=== PATIENT | male | born 1985 | race Caucasian/White ===

== ENCOUNTER → 2016-09-04 | Outpatient (CLI) | payer BC ==
[2016-09-04 10:45] LABS: CH 30.2; CHCM 34.6; HCT 48.8 % (39.0-53.0); HDW 3.04; HGB 16.5 gm/dL (13.0-17.5); MCH 29.7 pg (25.0-35.0); MCHC 33.7 g/dL (31.0-37.0); MCV 87.9 fL (80.0-100.0); Mean Platelet Volume 9.2; RBC 5.55 m/uL (4.30-5.90); WBC 5.3 k/uL (3.8-10.6)
[2016-09-04 11:07] LABS: ALT 34 U/L (21-72); AST 32 U/L (17-59); Alkaline Phosphatase 62 U/L (38-126); Anion Gap 15 mmol/L; Blood Urea Nitrogen 14 mg/dL (9-20); Calcium 9.9 mg/dL (8.4-10.2); Carbon Dioxide 27 mmol/L (22-30); Chloride 105 mmol/L (98-107); Cholesterol 190 mg/dL (<200); Glucose 95 mg/dL (74-99); HDL Cholesterol 29 mg/dL (40-60); Non-African American GFR(MDRD) >60 (>60 ml/min/1.73 sqM); Sodium 147 mmol/L (137-145); Total Protein 7.7 g/dL (6.3-8.2); Triglycerides 170 mg/dL (<150)
== END ==
LOC: LABWHC1 10:24
PROVIDERS: ATTEND Internal Medicine Interventional Cardiology
DX: R06.09 Other forms of dyspnea (principal)
CPT/HCPCS: 36415; 80053; 80061; 85027

== ENCOUNTER 2019-05-17 19:58 | Emergency (ER) | payer BC, MEDICAID, OTHER ==
[2019-05-17 20:12] VITALS: RESP 18; TEMP 97.4
[2019-05-17] MEDS ORDERED: SODIUM CHLORIDE 0.9% 1,000 ML IV STA (20:29)
[2019-05-17] MEDS ORDERED: HYDROmorphone 0.5 MG/0.5 ML SYRINGE IVP STA (20:29)
[2019-05-17] MEDS ORDERED: KETOROLAC 30 MG/ML 1 ML VIAL IVP STA (20:29)
[2019-05-17] MEDS ORDERED: ONDANSETRON 4 MG/2 ML VIAL IVP STA (20:29)
--- NOTE | 2019-05-17 20:40 | ED ---
Abdominal Pain HPI - General Chief Complaint: Abdominal Pain Stated Complaint: Abd pain Time Seen by Provider: 05/17/19 20:08 Source: patient Mode of arrival: ambulatory Limitations: no limitations - History of Present Illness Initial Comments: 33-year-old male patient presents to the emergency department today for evaluation of suprapubic pain and mid low back pain. Patient states this started a few hours ago and has been worsening. States he feels like he constantly has to urinate but only voids small amounts. Denies any hematuria. Denies nausea, vomiting, fever, or chills. Denies any history of similar type pain. Denies any flank pain. Denies history of abdominal surgery. States his bowel movements have been normal. Denies hematochezia or melena. Patient denies any recent rash, shortness breath, chest pain, numbness, tingling, dizziness, weakness, headache, visual changes, or any other complaints. - Related Data Previous Rx's Medication Instructions Recorded Ibuprofen [Motrin] 600 mg PO Q8HR PRN #30 tab 05/17/19 Ondansetron [Zofran ODT] 4 mg PO Q8HR PRN #10 tab 05/17/19 Tamsulosin HCl [Flomax] 0.4 mg PO DAILY #7 cap 05/17/19 Allergies Allergy/AdvReac Type Severity Reaction Status Date / Time Sulfa (Sulfonamide Allergy Unknown Verified 05/17/19 20:14 Antibiotics) Childhood Review of Systems ROS Statement: Those systems with pertinent positive or pertinent negative responses have been documented in the HPI. ROS Other: All systems not noted in ROS Statement are negative. Past Medical History Past Medical History: No Reported History History of Any Multi-Drug Resistant Organisms: None Reported Additional Past Surgical History / Comment(s): cleft palate, tympanoplasty Past Psychological History: No Psychological Hx Reported Smoking Status: Never smoker Past Alcohol Use History: None Reported Past Drug Use History: None Reported General Exam Limitations: no limitations General appearance: alert, in no apparent distress, other (This is a well- developed, well-nourished adult male patient in no acute distress. Vital signs upon presentation are temperature 97.4F, pulse 71, respirations 18, blood p ressure 139/85, pulse ox 98% on room air.) Eye exam: Present: normal appearance, PERRL, EOMI. Absent: scleral icterus, conjunctival injection, periorbital swelling ENT exam: Present: normal exam, normal oropharynx, mucous membranes moist Respiratory exam: Present: normal lung sounds bilaterally. Absent: respiratory distress, wheezes, rales, rhonchi, stridor Cardiovascular Exam: Present: regular rate, normal rhythm, normal heart sounds. Absent: systolic murmur, diastolic murmur, rubs, gallop, clicks GI/Abdominal exam: Present: soft, normal bowel sounds. Absent: distended, tenderness, guarding, rebound, rigid Back exam: Absent: CVA tenderness (R), CVA tenderness (L) Neurological exam: Present: alert, oriented X3, CN II-XII intact Psychiatric exam: Present: normal affect, normal mood Skin exam: Present: warm, dry, intact, normal color. Absent: rash Course Vital Signs 05/17/19 05/17/19 20:10 22:49 Temperature 97.4 F L Pulse Rate 71 73 Respiratory 18 18 Rate Blood Pressure 139/85 131/77 O2 Sat by Pulse 98 96 Oximetry Medical Decision Making - Medical Decision Making 33-year-old male patient presents to the emergency department today for evaluation of suprapubic and low back pain. Patient states this started approximately an hour ago. Physical examination did reveal no abdominal tenderness no CVA tenderness. Labs reviewed, elevated creatinine. Urinalysis shows the presence of blood. CT abdomen and pelvis without contrast was obtained and shows evidence for a left 2 mm kidney stone at the U Da. I did discuss findings and results with the patient. We'll treat for kidney stone with pain management, nausea medication, and Flomax. He is instructed to follow-up with his primary care physician for recheck in 1-2 days. He is instructed to follow-up with urology as needed. Return parameters discussed in detail. He verbalizes understanding and agrees with this plan. - Lab Data Result diagrams: 05/17/19 20:43 05/17/19 20:43 Lab Results 05/17/19 05/17/19 05/17/19 Range/Units 20:43 20:43 20:45 WBC 8.5 (3.8-10.6) k/uL RBC 5.78 (4.30-5.90) m/uL Hgb 17.3 (13.0-17.5) gm/dL Hct 50.4 (39.0-53.0) % MCV 87.1 (80.0-100.0) fL MCH 29.8 (25.0-35.0) pg MCHC 34.2 (31.0-37.0) g/dL RDW 13.0 (11.5-15.5) % Plt Count 134 L (150-450) k/uL Neutrophils % 69 % Lymphocytes % 20 % Monocytes % 5 % Eosinophils % 3 % Basophils % 1 % Neutrophils # 5.9 (1.3-7.7) k/uL Lymphocytes # 1.7 (1.0-4.8) k/uL Monocytes # 0.4 (0-1.0) k/uL Eosinophils # 0.3 (0-0.7) k/uL Basophils # 0.1 (0-0.2) k/uL Sodium 142 (137-145) mmol/L Potassium 4.2 (3.5-5.1) mmol/L Chloride 107 (98-107) mmol/L Carbon Dioxide 26 (22-30) mmol/L Anion Gap 9 mmol/L BUN 20 (9-20) mg/dL Creatinine 1.40 H (0.66-1.25) mg/dL Est GFR (CKD-EPI)AfAm 76 (>60 ml/min/1.73 sqM) Est GFR (CKD-EPI)NonAf 65 (>60 ml/min/1.73 sqM) Glucose 107 H (74-99) mg/dL Calcium 10.0 (8.4-10.2) mg/dL Total Bilirubin 0.7 (0.2-1.3) mg/dL AST 27 (17-59) U/L ALT 28 (21-72) U/L Alkaline Phosphatase 57 (38-126) U/L Total Protein 7.2 (6.3-8.2) g/dL Albumin 4.6 (3.5-5.0) g/dL Amylase 45 (30-110) U/L Lipase 76 (23-300) U/L Urine Color Yellow Urine Appearance Clear (Clear) Urine pH 6.0 (5.0-8.0) Ur Specific [place] 1.040 H (1.001-1.035) Urine Protein 1+ H (Negative) Urine Glucose (UA) Negative (Negative) Urine Ketones Trace H (Negative) Urine Blood Large H (Negative) Urine Nitrite Negative (Negative) Urine Bilirubin Negative (Negative) Urine Urobilinogen <2.0 (<2.0) mg/dL Ur Leukocyte Esterase Small H (Negative) Urine RBC 25 H (0-5) /hpf Urine WBC 2 (0-5) /hpf Ur Squamous Epith Cells 0 (0-4) /hpf - Radiology Data Radiology results: report reviewed, image reviewed KUB x-ray was obtained. Report was reviewed in its entirety. Impression by Dr. Barrett shows nonacute abdomen. CT abdomen and pelvis without contrast was obtained. Report was reviewed in its entirety. Impression by Dr. Barrett shows small left renal calculus. There is small obstructing calculus at the left ureterovesical junction with mild left-sided hydronephrosis and hydroureter. Normal appendix. Disposition Clinical Impression: Kidney stone on left side Disposition: HOME SELF-CARE Condition: Good Instructions (If sedation given, give patient instructions): Kidney Stones (ED) Additional Instructions: Increase fluids. Rest. Take medications as directed. Follow up through primary care physician for recheck in 1-2 days. Follow-up with urology as needed. Return to the emergency department immediately for any new, worsening, or concerning symptoms. Prescriptions: Tamsulosin HCl [Flomax] 0.4 mg PO DAILY #7 cap Ibuprofen [Motrin] 600 mg PO Q8HR PRN #30 tab PRN Reason: Pain Ondansetron [Zofran ODT] 4 mg PO Q8HR PRN #10 tab PRN Reason: Nausea Is patient prescribed a controlled substance at d/c from ED?: No Referrals: Rony Krause DO [Primary Care Provider] - 1-2 days Time of Disposition: 23:08
--- NOTE | 2019-05-17 21:10 | XR ---
EXAMINATION TYPE: XR KUB DATE OF EXAM: 05/17/2019 COMPARISON: None HISTORY: Abdominal pain TECHNIQUE: 2 views upright FINDINGS: Bowel gas pattern is normal. There is no sign of intestinal obstruction or pneumoperitoneum . Lung bases are clear. There are no pathologic calcifications. IMPRESSION: Nonacute abdomen.
[2019-05-17 21:18] LABS: Albumin 4.6 g/dL (3.5-5.0); Potassium 4.2 mmol/L (3.5-5.1); Total Bilirubin 0.7 mg/dL (0.2-1.3); Total Protein 7.2 g/dL (6.3-8.2)
[2019-05-17 21:24] LABS: Basophils # (A) 0.1 k/uL (0-0.2); Basophils % (A) 1 %; Eosinophils # (A) 0.3 k/uL (0-0.7); Eosinophils % (A) 3 %; HCT 50.4 % (39.0-53.0); HGB 17.3 gm/dL (13.0-17.5); Lymphocytes # (A) 1.7 k/uL (1.0-4.8); Lymphocytes % (A) 20 %; MCH 29.8 pg (25.0-35.0); MCHC 34.2 g/dL (31.0-37.0); MCV 87.1 fL (80.0-100.0); Mean Platelet Volume 8.7; Monocytes # (A) 0.4 k/uL (0-1.0); Monocytes % (A) 5 %; Neutrophils # (A) 5.9 k/uL (1.3-7.7); Neutrophils % (A) 69 %; Platelet Count 134 k/uL (150-450); RBC 5.78 m/uL (4.30-5.90); WBC 8.5 k/uL (3.8-10.6)
[2019-05-17 22:25] LABS: Appearance,Urine Clear (Clear); Bilirubin,Urine Negative (Negative); Blood,Urine Large (Negative); Color,Urine Yellow; Glucose,Urine (UA) Negative (Negative); Ketones,Urine Trace (Negative); Leukocyte Esterase,Urine Small (Negative); Nitrite,Urine Negative (Negative); Protein,Urine 1+ (Negative); Urobilinogen,Urine <2.0 mg/dL (<2.0)
[2019-05-17] MEDS ORDERED: HYDROmorphone 1 MG/ML 1 ML SYRINGE IVP STA (22:29)
[2019-05-17 22:34] LABS: RBC,Urine 25 /hpf (0-5)
[2019-05-17 22:35] LABS: Squamous Epithelial Cell,Urine 0 /hpf (0-4)
[2019-05-17 22:52] VITALS: BP 131/77; PULSE 73
--- NOTE | 2019-05-17 22:58 | CT ---
EXAMINATION TYPE: CT abdomen pelvis wo con DATE OF EXAM: 05/17/2019 COMPARISON: HISTORY: Abdominal pain. Frequency. Hematuria. CT DLP: mGycm Automated exposure control for dose reduction was used. TECHNIQUE: Helical acquisition of images was performed from the lung bases through the pelvis. FINDINGS: Lung bases are clear of consolidation. There is no pleural effusion. Heart size is normal. There is n o pericardial effusion. Liver and spleen appear normal. Pancreas appears normal. Gallbladder appears normal. Bile ducts are not dilated. There is no adrenal mass. Kidneys show normal size. There is 2 mm calculus in the lateral left kidney . There is mild left-sided hydronephrosis. There is a 2 mm calculus at the left ureteral vesicle junc tion. There is minimal left-sided hydroureter. Bladder distends smoothly. There is no inguinal hernia . The appendix appears normal. There is no mesenteric edema. There is no ascites or free air. There is no sign of a bowel obstruction. There is no free fluid in the pelvis. Right kidney shows no hydroneph rosis. The lumbar spine is intact. Bony pelvis is intact. IMPRESSION: THERE IS SMALL LEFT RENAL CALCULUS. THERE IS SMALL OBSTRUCTING CALCULUS AT THE LEFT URETEROVESICAL JU NCTION WITH MILD LEFT-SIDED HYDRONEPHROSIS AND HYDROURETER. THE NORMAL APPENDIX.
[2019-05-17] MEDS ORDERED: ONDANSETRON 4 MG ODT STARTER PACK 2 TAB BTL PO STA (23:08)
[2019-05-17] MEDS ORDERED: IBUPROFEN 600 MG STARTER PACK 4 TAB BTL PO STA (23:08)
[2019-05-17] MEDS ORDERED: ACET/COD 300 MG/30 MG STARTER PACK 6 TAB BTL PO STA (23:08)
[2019-05-17] MEDS ORDERED: TAMSULOSIN 0.4 MG CAP.ER.24H PO STA (23:08)
== END 2019-05-17 23:20 | disposition home or self-care (01) ==
LOC: EC 19:58
DX: N20.0 Calculus of kidney (principal); R79.89 Other specified abnormal findings of blood chemistry; Z88.2 Allergy status to sulfonamides
CPT/HCPCS: 51798; 36415; 80053; 82150; 83690; 85025; 81001; 74018; 74176; 99284; 96374; 96375 ×2; 96376; 96361 ×2; J2405; J1885; J1170 ×2; S0119

== ENCOUNTER 2021-04-03 10:30 | Emergency (ER) | payer MEDICAID, OTHER ==
[2021-04-03 10:45] VITALS: RESP 18; TEMP 97.9
[2021-04-03] MEDS ORDERED: KETOROLAC 15 MG/ML 1 ML VIAL IM STA (10:57)
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
[2021-04-03 13:15] VITALS: BP 139/99; PULSE 90
== END 2021-04-03 13:07 | disposition home or self-care (01) ==
LOC: EC 10:30
DX: S13.4XXA Sprain of ligaments of cervical spine, initial encounter (principal); M54.5 Low back pain; M54.6 Pain in thoracic spine; Z79.1 Long term (current) use of non-steroidal anti-inflammatories (NSAID); V89.2XXA Person injured in unspecified motor-vehicle accident, traffic, initial encounter; Y92.410 Unspecified street and highway as the place of occurrence of the external cause
CPT/HCPCS: 72070; 72050; 72100; 99284; 96372; J1885

== ENCOUNTER → 2021-07-14 | Outpatient (CLI) | payer OTHER ==
--- NOTE | 2021-07-14 09:47 | MR ---
EXAMINATION TYPE: MR thoracic spine wo con DATE OF EXAM: 07/14/2021 COMPARISON: X-ray dated 04/03/2021 HISTORY: Thoracic pain Standard multiplanar, multisequence MRI departmental protocol Multiplanar, multisequence images of the thoracic spine were acquired without contrast. FINDINGS: There is a scoliotic curvature of the femur,. Within the mid and lower thoracic spine there is mild l oss of disc space and disc signal compatible with multilevel degenerative disc disease. There are no compression deformities. There is no marrow edema. Multilevel tiny Schmorl's nodes are incidentally n oted. Tiny right paracentral disc bulging T6-T7 and T10-T11. No spinal cord contact or canal stenosis. Neur al foramina in the lungs. No abnormal signal the visualized spinal cord. No abnormal signal visualize d paraspinal soft tissues. IMPRESSION: 1. Scoliosis with multilevel mild degenerative disc disease. 2. Tiny right paracentral disc bulging T6-T7 and T10-T11 with minimal effacement of thecal sac and no evidence of canal stenosis or foraminal encroachment.
== END | disposition home or self-care (01) ==
LOC: RADMRIMAIN 08:34
PROVIDERS: ATTEND Family Medicine
DX: M51.34 Other intervertebral disc degeneration, thoracic region (principal); M41.84 Other forms of scoliosis, thoracic region; M51.24 Other intervertebral disc displacement, thoracic region
CPT/HCPCS: 72146

== ENCOUNTER → 2021-10-25 | Outpatient (CLI) | payer OTHER ==
--- NOTE | 2021-10-25 15:26 | NM ---
EXAMINATION TYPE: NM bone/joint limited DATE OF EXAM: 10/25/2021 COMPARISON: MR thoracic spine 07/14/2021, plain film 04/03/2021 thoracic and lumbar spine HISTORY: Back pain TECHNIQUE: After the intravenous administration of 24.2 mCi Tc 99m MDP. Images acquired 3 hours pos t injection. Multiple views of the spine are submitted. There is no abnormal uptake within the visualized osseous structures to suggest acute process. Soft t issue uptake is normal. There is a spinal curvature. IMPRESSION: No acute osseous abnormality. There is an underlying scoliosis.
== END | disposition home or self-care (01) ==
LOC: RADNMMAIN 10:56
PROVIDERS: ATTEND Orthopaedic Surgery Orthopaedic Surgery of the Spine
DX: M41.9 Scoliosis, unspecified (principal)
CPT/HCPCS: 78300; A9503